=== PATIENT | male | born 1985 | race Caucasian/White ===

== ENCOUNTER 2023-05-10 11:28 | Emergency (ER) | payer OTHER ==
[2023-05-10 11:34] VITALS: BP 135/88; PULSE 75; RESP 16; TEMP 98.3; BMI 35.7
[2023-05-10] MEDS ORDERED: IBUPROFEN 600 MG TABLET (FP) PO ONE ×2 (14:19→14:20)
== END 2023-05-10 14:34 | disposition home or self-care (01) ==
LOC: JERFT 11:28
DX: S69.91XA Unspecified injury of right wrist, hand and finger(s), initial encounter (principal); M79.641 Pain in right hand; W31.9XXA Contact with unspecified machinery, initial encounter; Y99.0 Civilian activity done for income or pay
CPT/HCPCS: 73130-TC-RT-FY; 99283-25